=== PATIENT | female | born 1965 | race Caucasian/White ===

== ENCOUNTER 2023-03-18 20:41 | Inpatient (IN) | payer BC ==
[2023-03-18] MEDS ORDERED: Senokot S 8.6-50 MG TAB PO PRN (21:35)
[2023-03-18] MEDS ORDERED: Ondansetron ODT 4 MG TAB PO PRN (21:35)
[2023-03-18 22:05] LABS: #Monocytes 0.8 thou/uL (0.11-0.59); #Neutrophils 6.8 thou/uL (1.40-6.50); %Basophils 0.1 % (0.0-1.0); %Lymphocytes 13.1 % (21.0-51.0); %Monocytes 9.4 % (0.0-10.0); %Neutrophils 77.2 % (42.0-75.0); Hematocrit 46.7 % (36.0-47.0); Hemoglobin 15.6 g/dL (12.0-16.0); Mean Corpuscular HGB CONC 33.4 g/dL (32.0-36.0); Mean Corpuscular Hemoglobin 30.3 pg (27.0-31.0); Mean Corpuscular Volume 90.7 fl (78.0-98.0); Mean Platelet Volume 10.9 fL (7.4-10.4); Platelet Count 109 10x3/uL (130-400); Red Blood Cell (RBC) Count 5.15 mill/uL (4.20-5.40); White Blood Cell (WBC) Count 8.8 10x3/uL (4.8-10.8)
[2023-03-18 22:29] LABS: ALT (SGPT) 15 U/L (8-55); AST (SGOT) 74 U/L (5-34); Albumin 3.6 g/dL (3.5-5.0); Alkaline Phosphatase 113 U/L (40-110); Anion Gap 12 mmol/L (10-20); BUN (Urea Nitrogen) 12 mg/dL (9.8-20.1); Bilirubin, Total 0.7 mg/dL (0.2-1.2); Calc. Creatinine Clearance 0 mL/min (70-130); Calcium 10.3 mg/dL (7.8-10.44); Carbon Dioxide 29 mmol/L (22-29); Chloride 101 mmol/L (98-107); Estimated GFR 75; Globulin 2.5 g/dL (2.4-3.5); Glucose 87 mg/dL (70-105); Magnesium 1.9 mg/dL (1.6-2.6); Potassium 3.5 mmol/L (3.5-5.1); Protein, Total 6.1 g/dL (6.0-8.3); Sodium 138 mmol/L (136-145)
[2023-03-18] MEDS: Acetaminophen 325 MG TAB PO PRN (22:30)
[2023-03-18] MEDS: Ondansetron PF 4 MG/2 ML Vial IVP PRN (22:30)
[2023-03-18 22:34] LABS: Troponin I 25.393 ng/mL (< 0.028)
[2023-03-18 22:42] VITALS: BMI 26.4
[2023-03-18] MEDS ORDERED: Iron, Sodium Ferric Gluconate 250 MG in Sodium Chloride 0.9% 250 ML 250 ML IVPB SCH (22:52)
[2023-03-18] MEDS ORDERED: hydrOXYzine Pamoate 25 mg Capsule PO PRN (23:27)
[2023-03-18] MEDS ORDERED: Morphine 2 MG/ML VIAL SLOW IVP SCH (23:59)
[2023-03-19 01:36] LABS: Critical Call Chem Troponin I RESULT DECREASING; Troponin I 21.231 ng/mL (< 0.028)
[2023-03-19 06:03] LABS: Cardiac Risk 3.8 (Less than 4.5)
[2023-03-19 08:35] LABS: #Monocytes 0.6 thou/uL (0.11-0.59); #Neutrophils 4.6 thou/uL (1.40-6.50); %Basophils 0.3 % (0.0-1.0); %Eosinophils 0.3 % (0.0-10.0); %Lymphocytes 17.5 % (21.0-51.0); %Monocytes 9.5 % (0.0-10.0); %Neutrophils 72.1 % (42.0-75.0); Hematocrit 43.8 % (36.0-47.0); Hemoglobin 14.7 g/dL (12.0-16.0); Mean Corpuscular HGB CONC 33.6 g/dL (32.0-36.0); Mean Corpuscular Hemoglobin 30.9 pg (27.0-31.0); Mean Platelet Volume 11.3 fL (7.4-10.4); Platelet Count 106 10x3/uL (130-400); RBC Distribution Width 13.9 % (11.5-14.5); Red Blood Cell (RBC) Count 4.76 mill/uL (4.20-5.40); White Blood Cell (WBC) Count 6.3 10x3/uL (4.8-10.8)
[2023-03-19 08:59] LABS: Phosphorus 2.3 mg/dL (2.3-4.7)
[2023-03-19 09:00] LABS: Anion Gap 14 mmol/L (10-20); BUN (Urea Nitrogen) 12 mg/dL (9.8-20.1); Calc. Creatinine Clearance 96 mL/min (70-130); Calcium 10.5 mg/dL (7.8-10.44); Carbon Dioxide 28 mmol/L (22-29); Chloride 102 mmol/L (98-107); Estimated GFR 82; Glucose 75 mg/dL (70-105); Potassium 3.7 mmol/L (3.5-5.1); Sodium 140 mmol/L (136-145)
[2023-03-19] MEDS ORDERED: Magnesium 2 GM/50 ML(in water) 2 GM in Premix Bag 1 BAG IVPB SCH (09:00)
[2023-03-19] MEDS ORDERED: Metoprolol Tartrate 25 MG TAB PO SCH (09:00)
[2023-03-19] MEDS: Aripiprazole 10 MG TAB PO SCH (09:06)
[2023-03-19 09:07] LABS: Critical Call Chem Troponin I RESULT DECREASING; Troponin I 11.682 ng/mL (< 0.028)
[2023-03-19] MEDS: Losartan 25 MG TAB PO SCH (09:07)
[2023-03-19] MEDS: Aspirin Chewable 81 MG TAB PO SCH (09:07)
[2023-03-19] MEDS: Famotidine 20 MG TAB PO SCH ×2 (09:07→20:43)
[2023-03-19] MEDS: Acetaminophen 325 MG TAB PO PRN (09:08)
[2023-03-19] MEDS: Famotidine/PF 20 mg/2ml Vial SLOW IVP SCH ×2 (09:12→20:44)
[2023-03-19] MEDS ORDERED: Communication Order-Pharmacy FS SCH (11:00)
[2023-03-19] MEDS: HYDROcodone/Acetaminophen 5/325 mg Tablet PO PRN ×2 (13:08→22:54)
[2023-03-19] MEDS: Folic Acid 1 MG TAB PO SCH (20:43)
[2023-03-19] MEDS: Multivit, Therapeutic 1 TAB PO SCH (20:43)
[2023-03-19] MEDS: Cyanocobalamin (Vitamin B-12) 1,000 MCG TAB PO SCH (20:43)
[2023-03-19] MEDS: Sertraline 100 MG TAB PO SCH (20:44)
[2023-03-20 04:30] LABS: #Eosinphils 0.1 thou/uL (0.0-0.7); #Monocytes 0.6 thou/uL (0.11-0.59); #Neutrophils 4.1 thou/uL (1.40-6.50); %Basophils 0.6 % (0.0-1.0); %Eosinophils 1.2 % (0.0-10.0); %Lymphocytes 27.3 % (21.0-51.0); %Monocytes 9.3 % (0.0-10.0); %Neutrophils 61.3 % (42.0-75.0); Hematocrit 41.2 % (36.0-47.0); Mean Corpuscular Hemoglobin 30.6 pg (27.0-31.0); Mean Corpuscular Volume 90.2 fl (78.0-98.0); Mean Platelet Volume 11.9 fL (7.4-10.4); Platelet Count 98 10x3/uL (130-400); RBC Distribution Width 13.8 % (11.5-14.5); Red Blood Cell (RBC) Count 4.57 mill/uL (4.20-5.40); White Blood Cell (WBC) Count 6.7 10x3/uL (4.8-10.8)
[2023-03-20 04:52] LABS: Anion Gap 10 mmol/L (10-20); BUN (Urea Nitrogen) 13 mg/dL (9.8-20.1); Calc. Creatinine Clearance 101 mL/min (70-130); Calcium 9.7 mg/dL (7.8-10.44); Carbon Dioxide 28 mmol/L (22-29); Chloride 102 mmol/L (98-107); Estimated GFR 87; Glucose 74 mg/dL (70-105); Magnesium 2.2 mg/dL (1.6-2.6); Potassium 3.1 mmol/L (3.5-5.1); Sodium 137 mmol/L (136-145)
[2023-03-20] MEDS: Losartan 25 MG TAB PO SCH (05:35)
[2023-03-20] MEDS: Aspirin Chewable 81 MG TAB PO SCH (05:36)
[2023-03-20] MEDS: Aripiprazole 10 MG TAB PO SCH (05:36)
[2023-03-20] MEDS: Famotidine 20 MG TAB PO SCH ×2 (05:36→20:42)
[2023-03-20] MEDS: Famotidine/PF 20 mg/2ml Vial SLOW IVP SCH ×2 (05:36→20:36)
[2023-03-20] MEDS ORDERED: Sodium Chloride 0.9% 1,000 ML IV SCH ×2 (06:00→07:59)
[2023-03-20] MEDS ORDERED: Midazolam HCl 2 mg/2 ml Vial ONE (06:23)
[2023-03-20] MEDS ORDERED: fentaNYL 50 mcg/mL 1 mL Vial ONE (06:23)
[2023-03-20] MEDS ORDERED: Heparin 10,000 UNITS/ 10 ML VIAL ONE (06:24)
[2023-03-20] MEDS ORDERED: Lidocaine 1% (PF) 30 ML VIAL ONE (06:24)
[2023-03-20] MEDS ORDERED: Protamine Sulfate 50 MG/5 ML VIAL ONE (07:41)
[2023-03-20] MEDS ORDERED: Nitroglycerin 0.4 MG TAB (25 Tab Bottle) SL PRN (07:58)
[2023-03-20] MEDS ORDERED: Acetaminophen/Codeine 30-300mg Tablet PO PRN ×2 (07:58)
[2023-03-20] MEDS ORDERED: Sodium Chloride 0.9% 200 ML IV PRN (07:58)
[2023-03-20] MEDS ORDERED: Potassium Chloride 20 MEQ TAB PO SCH (08:00)
[2023-03-20] MEDS: Aspirin 81 mg Enteric Coated Tablet PO SCH (09:03)
[2023-03-20] MEDS: Isosorbide Mononitrate 30 MG ER.TAB PO SCH (09:04)
[2023-03-20] MEDS: Sacubitril 24MG/Valsartan 26 MG TAB PO SCH ×2 (09:04→20:42)
[2023-03-20] MEDS ORDERED: Potassium Bicarbonate/Cit Ac 20 MEQ TAB PO SCH (09:30)
[2023-03-20] MEDS: Ondansetron PF 4 MG/2 ML Vial IVP PRN (10:14)
[2023-03-20] MEDS: HYDROcodone/Acetaminophen 5/325 mg Tablet PO PRN (20:41)
[2023-03-20] MEDS: Multivit, Therapeutic 1 TAB PO SCH (20:42)
[2023-03-20] MEDS: Sertraline 100 MG TAB PO SCH (20:42)
[2023-03-20] MEDS: Folic Acid 1 MG TAB PO SCH (20:42)
[2023-03-20] MEDS: Cyanocobalamin (Vitamin B-12) 1,000 MCG TAB PO SCH (20:42)
[2023-03-20] MEDS ORDERED: Atorvastatin Calcium 40 MG TAB PO SCH (21:00)
[2023-03-21 04:50] LABS: #Eosinphils 0.2 thou/uL (0.0-0.7); #Monocytes 0.6 thou/uL (0.11-0.59); #Neutrophils 3.4 thou/uL (1.40-6.50); %Basophils 0.5 % (0.0-1.0); %Eosinophils 3.3 % (0.0-10.0); %Monocytes 10.3 % (0.0-10.0); %Neutrophils 57.6 % (42.0-75.0); Hemoglobin 14.2 g/dL (12.0-16.0); Mean Corpuscular Hemoglobin 30.6 pg (27.0-31.0); Mean Corpuscular Volume 92.7 fl (78.0-98.0); Mean Platelet Volume 11.7 fL (7.4-10.4); Platelet Count 98 10x3/uL (130-400); RBC Distribution Width 13.9 % (11.5-14.5); Red Blood Cell (RBC) Count 4.64 mill/uL (4.20-5.40); White Blood Cell (WBC) Count 5.8 10x3/uL (4.8-10.8)
[2023-03-21 05:12] LABS: Anion Gap 10 mmol/L (10-20); BUN (Urea Nitrogen) 12 mg/dL (9.8-20.1); Calc. Creatinine Clearance 94 mL/min (70-130); Calcium 9.7 mg/dL (7.8-10.44); Carbon Dioxide 31 mmol/L (22-29); Chloride 103 mmol/L (98-107); Estimated GFR 80; Glucose 74 mg/dL (70-105); Potassium 3.8 mmol/L (3.5-5.1); Sodium 140 mmol/L (136-145)
[2023-03-21] MEDS ORDERED: Potassium Chloride 20 MEQ TAB PO SCH (08:15)
[2023-03-21] MEDS: Isosorbide Mononitrate 30 MG ER.TAB PO SCH (08:19)
[2023-03-21] MEDS: Sacubitril 24MG/Valsartan 26 MG TAB PO SCH (08:19)
[2023-03-21] MEDS: Aspirin 81 mg Enteric Coated Tablet PO SCH (08:19)
[2023-03-21] MEDS: Famotidine 20 MG TAB PO SCH (08:19)
[2023-03-21] MEDS: Aripiprazole 10 MG TAB PO SCH (08:19)
[2023-03-21] MEDS: Famotidine/PF 20 mg/2ml Vial SLOW IVP SCH (08:20)
[2023-03-21] MEDS ORDERED: Apixaban 5 MG TAB PO SCH (09:00)
[2023-03-21] MEDS ORDERED: FLU VACC QS2023-24(6MOS UP)/PF 60 MCG/0.5 ML SYRINGE IM ONE (09:00)
[2023-03-21 12:47] VITALS: BP 136/86; TEMP 97.8
== END 2023-03-21 12:45 | disposition home or self-care (01) | DRG 281 ==
LOC: INTOOBSV 20:41 → 2SW 20:41 → OBSVTOIN 03-19 07:59
PROVIDERS: ADMIT Internal Medicine; ATTEND Internal Medicine
PROC: 4A023N7 Measurement of Cardiac Sampling and Pressure, Left Heart, Percutaneous Approach (ICD-10-PCS; principal; 2023-03-20)
PROC: B2111ZZ Fluoroscopy of Multiple Coronary Arteries using Low Osmolar Contrast (ICD-10-PCS; 2023-03-20)
PROC: B2151ZZ Fluoroscopy of Left Heart using Low Osmolar Contrast (ICD-10-PCS; 2023-03-20)
DX: I21.4 Non-ST elevation (NSTEMI) myocardial infarction (principal); I47.10 Supraventricular tachycardia, unspecified; I51.81 Takotsubo syndrome; I10 Essential (primary) hypertension; F32.A Depression, unspecified; F41.9 Anxiety disorder, unspecified; I25.10 Atherosclerotic heart disease of native coronary artery without angina pectoris; E11.9 Type 2 diabetes mellitus without complications; E78.00 Pure hypercholesterolemia, unspecified; F12.129 Cannabis abuse with intoxication, unspecified; E83.42 Hypomagnesemia; I48.0 Paroxysmal atrial fibrillation; D69.6 Thrombocytopenia, unspecified; Z91.012 Allergy to eggs; Z79.899 Other long term (current) drug therapy; Z98.890 Other specified postprocedural states; Z79.01 Long term (current) use of anticoagulants
CPT/HCPCS: 36415; 80048; 80061; 83735; 84100; 84484; 85025; 85347; 93005; 93010; 93306; 93458; 93798; 96372; 96374; 96375; 97139; 99152; C1769; G0378; J1644; J1650; J2001; J2250; J2272; J2405; J2720; J3010; J3475; J7050